=== PATIENT | female | born 1985 | race Asian ===

== ENCOUNTER 2016-06-02 18:34 | Emergency (ER) | payer OTHER ==
[~2016-06-02] VITALS: Ht 152.4 cm; Wt 49.9 kg
[2016-06-02 19:16] VITALS: BP_SYST 117
[2016-06-02 19:38] LABS: BILIRUBIN,URINE NEGATIVE (NEGATIVE); BLOOD, URINE NEGATIVE (NEGATIVE); CLARITY/URINE SL HAZY (CLEAR); COLOR,URINE YELLOW (YELLOW); GLUCOSE,URINE NEGATIVE (NEGATIVE); KETONES,URINE NEGATIVE (NEGATIVE); LEUKOCYTE ESTERASE ,URINE TRACE (NEGATIVE); NITRITE, URINE NEGATIVE (NEGATIVE); PH,URINE 6.5 (5.0-8.0); PROTEIN URINE NEGATIVE (NEGATIVE); UROBILINOGEN,URINE 0.2 (0.2-1.0)
--- NOTE | 2016-06-02 19:44 | NUR ---
Patient to ER bed 5 to gown for evaluation. Side rails up. Report given to KEDAR Hewitt.
--- NOTE | 2016-06-02 19:55 | NUR ---
Dr Dia at bedside examining patient
--- NOTE | 2016-06-02 19:56 | NUR ---
Pt brought by partner, A&Ox4, pt c/o LLQ abd pain N/V, skin pink and warm,denies bleeding,VS WNL, respirations even and unlabored.
[2016-06-02] MEDS ORDERED: MORPHINE 4 MG/ML INJ. SYRINGE IVP ONE (20:15)
[2016-06-02] MEDS ORDERED: NACL 0.9% 1,000 ML IV ONE (20:15)
[2016-06-02] MEDS ORDERED: ONDANSETRON HCL 4 MG/2 ML VIAL IVP ONE (20:15)
[2016-06-02 20:17] LABS: RBC,URINE 0-3 /HPF (0-3)
[2016-06-02 20:18] LABS: BACTERIA,URINE FEW /HPF (None Seen); MUCUS,URINE None Seen /LPF (None Seen)
[2016-06-02 20:42] LABS: BASOPHILS % (AUTO) 0.4 % (0.0-2.0); EOSINOPHILS # (AUTO) 0.1 K/uL (0.0-0.4); EOSINOPHILS % (AUTO) 1.3 % (0.0-4.0); HEMATOCRIT 40.9 % (36-48); LYMPHOCYTES # (AUTO) 2.8 K/uL (1.0-5.5); LYMPHOCYTES % (AUTO) 28.7 % (20.5-51.5); MEAN CORPUSCULAR HEMOGLOBIN 29 pg (27-31); MEAN CORPUSCULAR HGB CONC 34 % (32-36); MEAN CORPUSCULAR VOLUME 84 fL (79.0-98.0); MONOCYTES # (AUTO) 0.6 K/uL (0.0-1.0); MONOCYTES % (AUTO) 6.2 % (1.7-9.3); NEUTROPHILS # (AUTO) 6.2 K/uL (1.8-7.7); NEUTROPHILS % (AUTO) 63.4 % (40.0-70.0); PLATELET COUNT (AUTO) 274 K/uL (130-430); RED BLOOD CELL COUNT(AUTO) 4.86 MIL/uL (4.2-6.2); RED CELL DISTRIBUTION WIDTH 12.2 % (9.0-15.0); WHITE BLOOD COUNT (AUTO) 9.8 K/uL (4.8-10.8)
[2016-06-02 20:56] LABS: CALCIUM 9.8 mg/dL (8.4-11.0); CREATININE 0.92 mg/dL (0.55-1.30); POTASSIUM 3.5 mmol/L (3.5-5.1)
[2016-06-02 21:00] LABS: ALBUMIN 4.1 g/dL (3.4-4.8); TOTAL BILIRUBIN 0.2 mg/dL (0.0-1.0); TOTAL PROTEIN, SERUM 8.6 g/dL (6.4-8.3)
--- NOTE | 2016-06-02 21:00 | NUR ---
Pt on stable condition, VS WNL, no nausea or vomiting at this time
--- NOTE | 2016-06-02 22:44 | NUR ---
Patient given written and verbal discharge instructions and verbalizes understanding. ER MD discussed with patient the results and treatment provided. Patient in stable condition. ID arm band removed. IV catheter removed intact and dressing applied, no active bleeding. Rx of Citrucel, Motrin ,Cipro,Zofran, Hydrocortisone given. Patient educated on pain management and to follow up with PMD. Pain Scale 2/10 tolerable for patient. Opportunity for questions provided and answered.
[2016-06-02 22:48] VITALS: BP_SYST 117
== END 2016-06-02 22:44 | disposition home or self-care (01) ==
LOC: SED 18:34
DX: N39.0 Urinary tract infection, site not specified (principal); K59.00 Constipation, unspecified; L30.9 Dermatitis, unspecified; M41.9 Scoliosis, unspecified
CPT/HCPCS: 36415; 74176; 80053; 81000; 81025; 85025; 87086; 96361; 96374; 96375; 99285; J2270; J2405; J7030